=== PATIENT | female | born 1980 ===

== ENCOUNTER 2016-09-16 17:36 | Emergency (ER) | payer OTHER ==
[2016-09-16 17:48] VITALS: BP 113/66
--- NOTE | 2016-09-16 18:21 | ED ---
Laceration/Wound HPI - HPI Summary HPI Summary: 35 YEAR OLD FEMALE PRESENTS WITH LEFT KNEE LACERATION. - History of Current Complaint Stated Complaint: LEFT KNEE LAC Time Seen by Provider: 09/16/16 17:54 - Allergy/Home Medications Allergies/Adverse Reactions: Allergies Allergy/AdvReac Type Severity Reaction Status Date / Time No Known Allergies Allergy Verified 09/16/16 17:48 Home Medications: Home Medications Pyridostigmine TAB* [Mestinon TAB*] 60 mg PO QID 09/16/16 [History Confirmed 07/29] PMH/Surg Hx/FS Hx/Imm Hx Infectious Disease History: No Infectious Disease History: Denies: Traveled Outside the [place] in Last 30 Days - Social History Alcohol Use: Occasionally Substance Use Type: Reports: None Smoking Status (MU): Never Smoked Tobacco Review of Systems Positive: Other - LEFT KNEE LACERATION All Other Systems Reviewed And Are Negative: Yes Physical Exam Triage Information Reviewed: Yes Vital Signs On Initial Exam: Initial Vitals Temp Pulse Resp BP Pulse Ox 37.0 C 59 14 113/66 100 09/16/16 17:45 09/16/16 17:45 09/16/16 17:45 09/16/16 17:45 09/16/16 17:45 Skin: Positive: Tender, Erythema @, Other - LEFT KNEE LACERATION Procedures - Laceration/Wound Repair 1 Location: lower extremity - LEFT KNEE X 2 Description: Linear Length, Depth and Shape: 0.25 INCH LENGTH X 2 Betadine Prep?: Yes Laceration/Wound Explored: clean Closure: Single Layer Suture Type: Nylon Number of Sutures: 2 - 2 SMALL LINEAR LACERATIONS Layer Closure?: Yes Sterile Dressing Applied?: Yes Diagnostics - Vital Signs Vital Signs Temp Pulse Resp BP Pulse Ox 09/16/16 17:45 37.0 C 59 14 113/66 100 - Laboratory Lab Statement: Any lab studies that have been ordered have been reviewed, and results considered in the medical decision making process. Laceration Repair Course/Dx - Clinical Impression Provider Diagnoses: Laceration of knee Discharge - Discharge Plan Condition: Stable Disposition: HOME Patient Education Materials: Laceration (ED) Referrals: Non Staff,Doctor [Primary Care Provider] -
[2016-09-16] MEDS ORDERED: Lidocaine 1% MPF* 2 ML VIAL INJ ONE (18:33)
== END 2016-09-16 18:34 | disposition home or self-care (01) ==
LOC: UCCORT 17:36
DX: S81.012A Laceration without foreign body, left knee, initial encounter (principal); W45.8XXA Other foreign body or object entering through skin, initial encounter; Y93.9 Activity, unspecified; Y92.9 Unspecified place or not applicable
CPT/HCPCS: 12001; 99202; G0463